=== PATIENT | female | born 1965 | race Caucasian/White ===

== ENCOUNTER 2024-01-29 05:55 | Day surgery (SDC) | payer OTHER, SELFPAY ==
[2024-01-14 10:07] VITALS: BMI 27.9
[2024-01-14 10:45] LABS: INR 1.07; PT 14.4 Sec (11.4-14.6)
[2024-01-14 10:53] LABS: % Basophils 0.6 % (0-2); % Eosinophils 1.3 % (0-6); % Immature Granulocytes 0.2 % (0-0.5); % Lymphocytes 40.8 % (20.5-51.1); % Monocytes 8.8 % (1.7-9.3); % Neutrophils 48.3 % (42.2-75.2); Absolute Eosinophils 0.1 10^3/uL (0-0.7); Absolute Lymphocytes 2.1 10^3/uL (1.2-3.4); Absolute Monocytes 0.5 10^3/uL (0.1-0.6); Absolute Neutrophils 2.5 10^3/uL (1.4-6.5); Hematocrit 44.3 % (37.0-47.0); Hemoglobin 14.8 g/dL (12.0-16.0); Mean Corp Hgb Conc. 33.4 g/dL (33.0-37.0); Mean Corpuscular Volume 92.7 fL (81.0-99.0); Mean Platelet Volume 10.2 fL (7.4-10.4); Nucleated Red Blood Cells % 0 %; Platelet Count 250 10^3/uL (130-400); Red Blood Cell Count 4.78 10^6/uL (4.20-5.40); Red Cell Dist. Width 12.4 % (11.5-14.5); White Blood Cell Count 5.3 10^3/uL (4.8-10.8)
[2024-01-14 10:59] LABS: ALT (SGPT) 24 U/L (0-35); AST (SGOT) 34 U/L (14-36); Albumin 4.7 g/dl (3.5-5.0); Alkaline Phosphatase 54 U/L (38-126); Blood Urea Nitrogen 23 mg/dl (7-17); Calcium 9.8 mg/dl (8.4-10.2); Carbon Dioxide 29 mmol/L (22-30); Chloride 102 mmol/L (98-107); Estimated Creatinine Clearance 65 ml/min; Glucose 93 mg/dl (70-99); Magnesium 2.2 mg/dl (1.6-2.3); Potassium 4.9 mmol/L (3.5-5.1); Sodium 142 mmol/L (135-145); Total Bilirubin 0.6 mg/dl (0.2-1.3); Total Protein 7.3 g/dl (6.3-8.2); eGFR > 60.00
--- NOTE | 2024-01-14 14:39 | HPS.HSE ---
Family Physician
-
Family Physician: Sonja Munoz NP
Chief Complaint
-
Paroxysmal atrial fibrillation.
History of Present Illness
The patient is a 58 year old female presenting today for paroxysmal atrial fibrillation. The patient reports a wide variety of symptoms with this diagnosis, which include chest pain, dyspnea, palpitations, dizziness, and generalized
fatigue. She is on current pharmacological therapy with Metoprolol Succinate. She has been compliant with Xarelto for oral anticoagulation. She notes that her current symptoms greatly interfere with her activities of daily living and overall impact
her quality of life. She is interested in pursuing pulmonary vein isolation for further arrhythmia management. She denies any current complaints today such as nausea, vomiting, diarrhea, lightheadedness, cough, sore throat, or fever.
Medical History
Past Medical History
Past Medical History: Reports Other
Additional Past Medical History:
1. Paroxysmal atrial fibrillation, pharmacological therapy with Metoprolol Succinate, oral anticoagulation with Eliquis.
2. Hypertension.
3. Hyperlipidemia.
4. Supraventricular tachycardia.
5. Mild mitral regurgitation.
6. GERD.
7. Peptic ulcer disease with previous GI bleed.
8. Colonic inertia, status post colon resection 2015.
9. Newly diagnosed Crohn's disease.
10. Irritable bowel syndrome.
11. Migraines.
12. Vertigo.
13. Possible small aneurysm of left MCA, work-up ongoing.
14. Spinal stenosis.
15. Right thyroid nodules noted on pre-ablation chest CT.
16. Endometriosis, status post hysterectomy, oophorectomy.
17. Granuloma annulare.
18. Depression.
19. Anxiety.
20. Bulimia nervosa in remission.
21. Current, infrequent tobacco abuse.
Past Surgical History: Reports Other
Additional Past Surgical History:
1. Colon resection.
2. Hysterectomy and oophorectomy.
3. Appendectomy.
4. Tonsillectomy.
5. Multiple colonoscopies.
6. Multiple endoscopies.
Social History
Tobacco: Smoker (She reports current 1-2 cigarette per week smoking. )
Alcohol: None
Personal:
Living: Other (She lives with her in a 2 story home. )
Family History
Family History: Not pertinent
Allergies / Home Medications
Allergy/Medication List:
Home medications:
1. Acetaminophen 650 mg p.o. every 6 hours as needed.
2. Clonazepam 0.25 mg p.o. at bedtime.
3. Dexilant 60 mg p.o. daily.
4. Benadryl 25 mg p.o. three times a day as needed.
5. Estradiol 1 mg p.o. daily.
6. Fluoxetine 40 mg p.o. daily.
7. Metoprolol Succinate 12.5 mg p.o. daily.
8. Xarelto 20 mg p.o. daily.
9. Semaglutide 0.25 mg subcutaneous on Sundays.
Allergies: Compazine. Sulfa. Pollen.
Review of Systems
-
A 12 point ROS was completed and negative except as noted: Yes
Physical Exam
Vital Signs
Blood pressure 137/79. Heart rate 62. Respirations 18. Pulse ox 97% on room air.
Height 5 feet, 4 inches. Weight 73.7 kg. BMI 27.9.
Physical Exam
General: Well Developed, Well Nourished and No Apparent Distress
HEENT: NormoCephalic, Moist mucous membranes and Atraumatic
Respiratory: Clear
Cardiac: Regular Rhythm
GI: Soft, Non Tender and Non Distended
Musculoskeletal: Normal Gait & Station
Skin: Warm and Dry
Neuro: AO x 3 and Nonfocal/grossly intact
Laboratory Results
-
01/14/24 10:14
01/14/24 10:14
Laboratory Results
PT 14.4 Sec (11.4-14.6) 01/14/24 10:14
INR 1.07 01/14/24 10:14
Total Bilirubin 0.6 mg/dl (0.2-1.3) 01/14/24 10:14
AST 34 U/L (14-36) 01/14/24 10:14
ALT 24 U/L (0-35) 01/14/24 10:14
Alkaline Phosphatase 54 U/L (38-126) 01/14/24 10:14
Type and screen O negative.
EKG 01/14/2024: Sinus bradycardia. Low voltage QRS. Poor R wave progression.
Chest CT 01/14/2024: Single superior and inferior left pulmonary veins. On the right, there is a superior and inferior pulmonary vein, as well has an accessory superior segment right lower lobe pulmonary vein immediately contiguous with the superior
margin of the inferior pulmonary vein. The inferior pulmonary vein has an inferior ostial branch with a diameter of 6.4 mm. No left atrial filling defect identified. No pulmonary embolism. Incidental right lobe thyroid nodules. Follow-up with
ultrasound recommended.
Echocardiogram 08/13/2023: Normal chamber sizes. Normal left and right ventricular systolic function. Grade 1 diastolic dysfunction. Trace aortic and tricuspid regurgitation. Mild mitral regurgitation.
Impression/Plan
-
IMPRESSION/PLAN:
1. Paroxysmal atrial fibrillation: The patient is in need of pulmonary vein isolation with Dr. Dominik Eric on 01/29/2024. The benefits and risks of the procedure have been explained to the patient. The patient understands these risks and wishes to
proceed. She will not be required to undergo a pre-procedural transesophageal echocardiogram as she has been complaint with her home oral anticoagulation. She is aware to continue her Xarelto uninterrupted prior to her ablation. She will take no
medications the morning of her procedure.
2. Semaglutide for weight loss: The patient is aware to hold this medication 1 week pre-operatively as advised by anesthesia.
3. Possible small aneurysm of left MCA, 2x2 mm on brain MRA: Imaging was preformed by the patient's neurologist due to the patient's strong family history of cerebral angiomas. Her neurologist, Dr. Alcon Lewis, has ordered a CT angiogram for
further evaluation. Should she need to go off anticoagulation in order to have surgery to correct this, she was instructed to call Dr. Eric's office for possible postponement of her ablation.
4. Incidental thyroid nodules on pre-ablation chest CT: The patient was notified of her results through phone call pre-operatively. A copy of her chest CT result was forwarded to her primary care physician's office for further follow-up.
[2024-01-29] VITALS (17 sets, daily range): BP systolic 86–111; BP diastolic 54–88; BMI 27.5
[2024-01-29 09:01] LABS: ACT-LR - POC 271 Seconds (116-155)
[2024-01-29 09:20] LABS: ACT-LR - POC 266 Seconds (116-155)
--- NOTE | 2024-01-29 09:29 | ITS.CL.ABL ---
[employer] - Ablation
Ablation
Procedure Report:
ELECTROPHYSIOLOGY ABLATION STUDY
�
DATE:: January 29, 2024�����������������������������REFERRING: Dr. Rasheed Roemro
�
INDICATION: Paroxysmal supraventricular tachycardia in the form of atrial fibrillation.��
�
HISTORY: See H and P.� As above
�
ANTIARRHYTHMIC DRUG: Metoprolol
�
PRE-PROCEDURE DORA: No atrial thrombus on intracardiac ultrasound and preablation CT
�
PRESENTING RHYTHM: Sinus rhythm
�
'TIME-OUT':��called and confirmed.
�
SEDATION/ANESTHESIA:��provided via the anesthesia department using general anesthesia (LMA).
�
INTRAVENOUS/ARTERIAL ACCESS:
Right femoral venous - 8Fr
Left femoral venous - 8 Fr, 6 Fr
[id number] stitch to each femoral venous access site
Ultrasound guidance for bilateral femoral vein access was utilized by me to obtain access with demonstration of normal anatomy
CHADS-VASC Score:
�
HAS-Bled Score
�
PROCEDURE:
1.��A decapolar CS catheter was placed within the CS for mapping and pacing.��This was also used as the reference catheter for the 3-D map.
�
2. The intracardiac ultrasound catheter was positioned in the RA to identify the FO for targeting of transseptal puncture, assist��in identification of the pulmonary vein ostia, monitoring pre and post ablation pulmonary vein flow velocities,
monitoring for 'bubble' formation during RF application as a sign of thermal injury,��and to monitor for pericardial effusion during mapping and ablation procedure.���Left atrial size, LV ejection fraction, and pulmonary vein flows were monitored
pre and post ablation procedure. The other valves were inspected and found to be free of significant regurgitation or stenosis.
�
3.��Half of the calculated heparin bolus was administered prior to the first transeptal puncture.��Transseptal puncture was performed to diagnose RA and LA pressure so that safety of LA mapping and ablation could be further assessed, and to access
the left atrium and pulmonary veins for mapping and ablation.��This entailed advancing an 14 Serbian sheath and needle apparatus with dilator into the superior vena cava and withdrawing both (monitoring intracardiac ultrasound, fluoroscopy and tip
pressure) with the tip oriented toward the atrial septum.��The fossa ovalis was engaged (indicated by sudden displacement of the sheath tip as well as tenting of the fossa seen on intracardiac ultrasound).��Left atrial access required a pass with
the [place]rough needle extended.��Left atrial catheter position was confirmed by pressure monitoring (RA mean pressure 8 mm Hg and LA mean presure 12 mm Hg), LA saturation (99%),��as well as fluoroscopy.��The sheath was advanced over the dilator
and positioned in the left atrium.��This procedure was repeated for the Agilis sheath.��The remainder of the calculated heparin bolus was administered and heparin was
infused to maintain ACT at 300 -350 seconds throughout the case.
�
4.��RA pacing was performed via the proximal decapolar poles and LA pacing was performed via the distal decapolr poles.
�
5. A quadrapolar catheter was first positioned at the His position for His Bundle recording which was tagged via the 3-D Navex sytem, and then passed to the RVA for RV pacing and recording.
�
6. The multipolar catheter and the PFA catheter were placed in each of the LIPV, LSPV, RSPV and the RIPV.��
�
7.��Next, a 3-D map was created using Navex.���A 3-D reconstructed CT image was compared to the 3-D Navex map to assist in anatomic interpretation, mapping and ablation.��The CT image and the NavX image were fused.
�
8. Total of 72 lesions were given to the pulmonary veins with additional extrapulmonary vein substrate targeted on the posterior wall of the left atrium outside the left veins and septally at the interatrial septum outside of the right veins. A
portion of the posterior wall was left intact in the center of the posterior wall. Entrance and exit block was confirmed in all 4 pulmonary veins.
�
9. Normal sinus node and AV eric function noted. EP study did not demonstrate any other nonpulmonary vein triggers for atrial fibrillation or supraventricular arrhythmia
TOTAL FLOURO TIME: 10.1 minutes 83 mGy
�
TOTAL RF DURATION: 0 minutes
�
REVERSAL OF HEPARIN: 30 mg of protamine, slow IV administration
�
COMPLICATIONS:
None
Intracardiac US shows no pericardial effusion post ablation.
�
SUMMARY:��
Complex left atrial mapping and ablation.
Pulm vein isolation and extrapulmonary vein substrate as above
�
RECOMMENDATIONS:
1. Ambulation in 3 to 4 hours
2. Resume anticoagulation
3.��Consider same-day discharge
4.� Outpatient follow-up arranged
�
Copy to: Dr. Rasheed Romero
�
--- NOTE | 2024-01-29 10:20 | PTCARENOTE ---
Pt with c/o throbbing headache 12/17, bilat groin aching/pulling 09/16 and middle chest aching /. Per pt she uses only tylenol for headaches. Also c/o allergy symptoms and requesting a benadryl dose. Spoke with Andreea CANTU-will place an order
for benadryl and recommended a tylenol dose be given with reassessment of pain. See mar.
[2024-01-29] MEDS: TYLENOL 650 MG PO (10:25)
[2024-01-29] MEDS: ANESTHETIC LOZENGE 1 LOZENGE PO (10:26)
[2024-01-29] MEDS: BENADRYL 25 MG PO (10:35)
--- NOTE | 2024-01-29 11:30 | PTCARENOTE ---
No change in pain assessment. Andreea CANTU informed. Will place an order for a 1x dose of toradol. See mar.
[2024-01-29] MEDS: TORADOL 30 MG IV (11:48)
--- NOTE | 2024-01-29 15:12 | W.PN.UPDATE ---
Update Note
Progress Note Update
58yo WF s/p PVI (same day). She c/o severe h/a, chest and groin pain initially, partially relieved with Tylenol and Toradol 30mg. EKG SR, b/l groins c/d/i, soft, R groin had ooze after F08 removed manual pressure held and remains c/d/i. She will
continue OAC Xarelto dose at home tonight. She will continue metoprolol. If her pain persists in the chest she can take motrin 400mg x1 tonight for probable pericarditis from ablation. Activity restrictions reviewed. She will f/u Dr. Romero in 2
mo. She is for d/c home after 330p if groins stable and voiding.
SUMMARY:��
Complex left atrial mapping and ablation.
Pulm vein isolation and extrapulmonary vein substrate as above
�
RECOMMENDATIONS:
1. Ambulation in 3 to 4 hours
2. Resume anticoagulation
3.��Consider same-day discharge
4.� Outpatient follow-up arranged
�
Copy to: Dr. Rasheed Romero
== END 2024-01-29 15:50 | disposition home or self-care (01) ==
LOC: CATH 05:55
PROVIDERS: ATTENDING PHYSICIAN Internal Medicine Cardiovascular Disease; FAMILY PHYSICIAN Nurse Practitioner Family; OTHER PHYSICIAN Internal Medicine Cardiovascular Disease
DX: I48.0 Paroxysmal atrial fibrillation (principal); I47.10 Supraventricular tachycardia, unspecified; I34.0 Nonrheumatic mitral (valve) insufficiency; I10 Essential (primary) hypertension; E78.5 Hyperlipidemia, unspecified; K21.9 Gastro-esophageal reflux disease without esophagitis; K50.90 Crohn's disease, unspecified, without complications; F17.210 Nicotine dependence, cigarettes, uncomplicated; F41.9 Anxiety disorder, unspecified; F32.A Depression, unspecified; Z79.01 Long term (current) use of anticoagulants; Z79.85 Long-term (current) use of injectable non-insulin antidiabetic drugs
CPT/HCPCS: C1732; C1894; C1730; C1769; C1892; C1759; C1733; C1766; 36415; 75572; 80053; 83735; 85025; 85347; 85610; 86850; 86900; 86901; 93005; 93656; 93657; Q9967

== ENCOUNTER → 2024-04-30 07:15 | Outpatient (REF) | payer OTHER, SELFPAY | LOC: HWRCS 07:15 | PROVIDERS: ATTENDING PHYSICIAN Internal Medicine Cardiovascular Disease; FAMILY PHYSICIAN Nurse Practitioner Family | DX: R00.2 Palpitations (principal); R42 Dizziness and giddiness | CPT/HCPCS: 93306 ==